=== PATIENT | male | born 2005 | race Caucasian/White ===

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

== ENCOUNTER 2024-06-07 11:41 | Emergency (ER) | payer OTHER, SELFPAY ==
[2024-06-07 11:46] VITALS: BP 125/66; PULSE 87; RESP 18; TEMP 36.6; O2SAT 99
--- NOTE | 2024-06-07 12:06 | ED.GENADULT ---
HPI - General Adult General Chief complaint: Head Injury Stated complaint: concussion? Time Seen by Provider: 06/07/24 11:58 History of Present Illness HPI narrative: 18-year-old male presenting ED with a head injury. He was at work yesterday when he stood up and struck the back of his head on a steel beam. He did not have loss of consciousness. He did not have persistent vomiting. No neurologic deficits. He is not on blood thinners. He is currently complaining of some dizziness, and light sensitivity. No other complaints. Related Data Allergies Allergy/AdvReac Type Severity Reaction Status Date / Time amoxicillin Allergy Unknown Rash Verified 03/01/23 23:50 Exam Narrative: APPEARANCE: No apparent distress. Head: Small abrasion to the lip septal scalp, no signs of skull fracture EYES: EOMI, NOSE: Atraumatic NECK: Trachea midline RESPIRATORY: No increased rate of breathing CARDIOVASCULAR: RRR, ABDOMINAL: Non-distended MUSCULOSKELETAl: No obvious deformities NEURO: Alert Cranial nerves 2-12 grossly intact. Sensation light touch, motor function cerebellar function intact for 4 extremities. Gait exam was normal. SKIN:: Warm, dry. Normal color PSYCHIATRIC: Normal affect Course Vital Signs Vital signs: Vital Signs Temperature 97.9 F 06/07/24 11:46 Pulse Rate 87 06/07/24 11:46 Respiratory Rate 18 06/07/24 11:46 Blood Pressure 125/66 06/07/24 11:46 Pulse Oximetry 99 06/07/24 11:46 Temperature 97.9 F 06/07/24 11:46 Pulse Rate 87 06/07/24 11:46 Respiratory Rate 18 06/07/24 11:46 Blood Pressure 125/66 06/07/24 11:46 Pulse Oximetry 99 06/07/24 11:46 Medical Decision Making [facility] Narrative Medical decision making narrative: -Course: 18 year 24 hours after striking his head on a steel beam. Patient's symptoms of concussions. With [place] CT rules he is exceedingly low risk for intracranial hemorrhage. Patient was educated on concussion symptoms instructed to follow up with primary care physician for further management. -DDX includes but is not limited to: concussion, ICH -Dx tests considered but not ordered: [place] CT Head Injury/Trauma Rule from [employer] on 06/07/2024 All calculations should be rechecked by clinician prior to use RESULT SUMMARY: CT Unnecessary The [place] CT Head Rule suggests a head CT is not necessary for this patient (sensitivity 83-100% for all intracranial traumatic findings, sensitivity 100% for findings requiring neurosurgical intervention). INPUTS: Age <16 years ?> 0 = No Patient on blood thinners ?> 0 = No Seizure after injury ?> 0 = No GCS <15 at 2 hours post-injury ?> 0 = No Suspected open or depressed skull fracture ?> 0 = No Any sign of basilar skull fracture? ?> 0 = No >= episodes of vomiting ?> 0 = No Age >=5 years ?> 0 = No Retrograde amnesia to the event >=30 minutes ?> 0 = No ?Dangerous? mechanism? ?> 0 = No Vital Signs Vital Signs: Vital Signs Temperature 97.9 F 06/07/24 11:46 Pulse Rate 87 06/07/24 11:46 Respiratory Rate 18 06/07/24 11:46 Blood Pressure 125/66 06/07/24 11:46 Pulse Oximetry 99 06/07/24 11:46 Temperature 97.9 F 06/07/24 11:46 Pulse Rate 87 06/07/24 11:46 Respiratory Rate 18 06/07/24 11:46 Blood Pressure 125/66 06/07/24 11:46 Pulse Oximetry 99 06/07/24 11:46 Discharge Plan Discharge Clinical Impression: Closed head injury Patient Disposition: Home, Self-Care Condition: Stable Instructions: Antibiotic Form, Concussion (ED) Additional Instructions: Please follow-up with your primary care physician for further management. Follow-up/Referrals: Elijah Naylor MD [Primary Care Provider] - 3 Days
== END 2024-06-07 12:20 | disposition home or self-care (01) ==
LOC: ANHED 12:13
PROVIDERS: Emergency Provider Emergency Medicine; PCP Pediatrics
DX: S00.01XA Abrasion of scalp, initial encounter (principal); W22.09XA Striking against other stationary object, initial encounter
CPT/HCPCS: 99283